=== PATIENT | male | born 2000 | race Caucasian/White ===

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

== ENCOUNTER 2022-02-19 09:36 | Emergency (ER) | payer OTHER ==
[~2022-02-19] VITALS: Ht 182.9 cm; Wt 74.0 kg
[~2022-02-19 09:36] MED LIST changes: +LEVE750T5 PO
[2022-02-19] MEDS ORDERED: DIVA250T67 PO (10:07)
[2022-02-19 11:03] VITALS: BP 129/65
== END 2022-02-19 11:54 | disposition left against medical advice (07) ==
LOC: M ED 09:36 → EDBD 09:36 → M ED 11:54
DX: G40.909 Epilepsy, unspecified, not intractable, without status epilepticus (principal); Z79.899 Other long term (current) drug therapy

== ENCOUNTER 2024-03-18 12:04 | Emergency (ER) | payer OTHER ==
[~2024-03-18] VITALS: Ht 180.3 cm; Wt 76.0 kg
[~2024-03-18 12:04] MED LIST changes: +AMOX875T2 PO; +CVS1CAP2 PO; +DIVA250T67 PO; +DIVA250T7 PO; +DIVA500T9 PO; +DIVA500T94 PO; +PRED10TA2 PO
[2024-03-18 12:20] VITALS: BP 130/78; TEMP 96.3; O2SAT 100
[2024-03-18 13:02] LABS: VALPROIC ACID (DEPAKOTE) 73.4 UG/ML (50.0-100.0)
[2024-03-18 13:03] LABS: BLOOD UREA NITROGEN 11 MG/DL (9-23); CALCIUM LEVEL 9.3 MG/DL (8.5-10.1); CARBON DIOXIDE LEVEL 23 MMOL/L (20-31); CHLORIDE LEVEL 108 MMOL/L (98-107); CREATININE FOR GFR 0.87 MG/DL (0.70-1.30); GLOMERULAR FILTRATION RATE > 60.0 (>60); GLUCOSE, FASTING 80 MG/DL (60-100); POTASSIUM SERUM 4.7 MMOL/L (3.5-5.1); SODIUM LEVEL 139 MMOL/L (136-145)
[2024-03-18] MEDS ORDERED: NS 1,000 ML IV ONE (13:10)
[2024-03-18] MEDS ORDERED: HOME MED LIST COMPLETE! XX SCH (13:30)
[2024-03-18] MEDS ORDERED: ZONI100C67 PO (19:31)
== END 2024-03-18 13:25 | disposition left against medical advice (07) ==
LOC: EDBD 12:04 → M ED 12:04
DX: G40.909 Epilepsy, unspecified, not intractable, without status epilepticus (principal); F19.10 Other psychoactive substance abuse, uncomplicated; Z79.899 Other long term (current) drug therapy; Z53.9 Procedure and treatment not carried out, unspecified reason

== ENCOUNTER 2024-03-18 18:11 | Observation (INO) | payer OTHER ==
[~2024-03-18] VITALS: Ht 180.3 cm; Wt 71.2 kg
[2024-03-18] MEDS ORDERED: HOME MED LIST COMPLETE! XX SCH (18:25)
[2024-03-18] MEDS: LORazepam 2 MG/ML 1ML VIAL IV STA (18:46)
[2024-03-18 18:56] LABS: IONIZED CALCIUM 4.9 MG/DL (4.5-5.3)
[2024-03-18 18:58] LABS: BASO % 0.2 % (0.0-1.0); EOS % 0.1 % (0.0-3.0); HEMATOCRIT 47.6 % (42.0-52.0); HEMOGLOBIN 15.4 g/dl (13.5-17.5); LYMPH # 1.5 10^3/uL (1.5-5.0); LYMPH % 8.2 % (24.0-44.0); MEAN CORPUSCULAR HEMOGLOBIN 28.6 pg (27.0-33.0); MEAN CORPUSCULAR HGB CONC 32.4 g/dl (32.0-36.5); MEAN CORPUSCULAR VOLUME 88.5 fl (80.0-96.0); MONO # 0.9 10^3/uL (0.0-0.8); MONO % 5.1 % (2.0-8.0); NEUTROPHILS # 15.6 10^3/uL (1.5-8.5); NEUTROPHILS % 85.7 % (36.0-66.0); PLATELET COUNT, AUTOMATED 219 10^3/uL (150-450); RED BLOOD COUNT 5.38 10^6/uL (4.30-6.10); WHITE BLOOD COUNT 18.2 10^3/uL (4.0-10.0)
[2024-03-18 19:04] LABS: APPEARANCE, URINE CLEAR (CLEAR); BACTERIA, URINE AUTO NEGATIVE (NEGATIVE); BILIRUBIN, URINE AUTO NEGATIVE (NEGATIVE); BLOOD, URINE BLOOD 1+ (NEGATIVE); COLOR, URINE YELLOW (YELLOW); GLUCOSE, URINE (UA) AUTO NEGATIVE (NEGATIVE); KETONE, URINE AUTO TRACE mg/dL (NEGATIVE); LEUKOCYTE ESTERASE, URINE AUTO NEGATIVE (NEGATIVE); MUCUS, URINE SMALL (NEGATIVE); NITRITE, URINE AUTO NEGATIVE (NEGATIVE); PROTEIN, URINE AUTO 2+ mg/dL (NEGATIVE); RBC, URINE AUTO 2 /HPF (0-3); SPECIFIC GRAVITY URINE AUTO 1.013 (1.002-1.035); SQUAMOUS EPITHELIAL CELL UR AU 0 /HPF (0-6); UROBILINOGEN, URINE AUTO 0.2 mg/dL (0.0-2.0); WBC, URINE AUTO 5 /HPF (0-3)
[2024-03-18 19:20] LABS: AMPHETAMINES LEVEL URINE NEGATIVE (NEGATIVE)
[2024-03-18 19:21] LABS: BARBITURATES URINE NEGATIVE (NEGATIVE); BENZODIAZEPINES URINE NEGATIVE (NEGATIVE); COCAINE METABOLITE URINE NEGATIVE (NEGATIVE); METHADONE URINE NEGATIVE (NEGATIVE); OPIATES URINE NEGATIVE (NEGATIVE); PHENCYCLIDINE URINE NEGATIVE (NEGATIVE)
[2024-03-18 19:28] LABS: CANNABINOIDS URINE POSITIVE (NEGATIVE)
[2024-03-18] MEDS ORDERED: ZONI100C67 PO (19:31)
[2024-03-18 19:34] LABS: ETHYL ALCOHOL (ETHANOL) < 0.003 % (0.000-0.010)
[2024-03-18 19:35] LABS: VALPROIC ACID (DEPAKOTE) 83.8 UG/ML (50.0-100.0)
[2024-03-18 19:36] LABS: ALBUMIN 4.4 G/DL (3.2-5.2); ALKALINE PHOSPHATASE 55 U/L (46-116); ALT/SGPT 21 U/L (7.0-40); AST/SGOT 20 U/L (<34); BILIRUBIN,DIRECT 0.1 MG/DL (<0.4); BILIRUBIN,TOTAL 0.4 MG/DL (0.3-1.2); BLOOD UREA NITROGEN 10 MG/DL (9-23); CALCIUM LEVEL 8.9 MG/DL (8.5-10.1); CARBON DIOXIDE LEVEL 21 MMOL/L (20-31); CHLORIDE LEVEL 107 MMOL/L (98-107); CREATININE FOR GFR 0.77 MG/DL (0.70-1.30); GLOMERULAR FILTRATION RATE > 60.0 (>60); GLUCOSE, FASTING 110 MG/DL (60-100); MAGNESIUM LEVEL 2.2 MG/DL (1.8-2.4); PHOSPHORUS LEVEL 2.6 MG/DL (2.5-4.9); SODIUM LEVEL 138 MMOL/L (136-145); TOTAL PROTEIN 7.6 G/DL (5.7-8.2)
[2024-03-18] MEDS: ZONISAMIDE 100 MG CAP (ZONEGRAN) PO ONE (22:46)
[2024-03-19] MEDS: VALPROATE SOD INJ 1,000 MG in D5W 50 ML IV ONE (01:01)
[2024-03-19] MEDS: NS 1,000 ML IV ONE (01:01)
[2024-03-19 03:30] VITALS: BP 120/78; TEMP 98.4; O2SAT 99
[2024-03-19] MEDS ORDERED: ACETAMINOPHEN TAB 650MG DOSE (2X325MG) PO PRN (04:10)
[2024-03-19] MEDS: ACETAMINOPHEN 500 MG TAB PO PRN (04:56)
[2024-03-19] MEDS ORDERED: ONDANSETRON 4MG ORAL DISINTEGRATING TAB PO PRN (05:20)
[2024-03-19] MEDS ORDERED: DIVALPROEX 500MG *ER* TAB PO SCH (09:00)
[2024-03-19] MEDS ORDERED: ENOXAPARIN 40MG/0.4ML SYRINGE (J1650 PER 10MG) SC SCH (09:00)
[2024-03-19] MEDS ORDERED: ZONISAMIDE 100 MG CAP (ZONEGRAN) PO SCH (21:00)
[2024-03-22] MEDS ORDERED: ZONISAMIDE 100 MG CAP (ZONEGRAN) PO SCH (21:00)
== END 2024-03-19 09:19 | disposition home or self-care (01) ==
LOC: M ED 18:11 → EDBD 18:11 → M ED INP 18:12 → M MSPAV 03-19 03:30
PROVIDERS: ADMIT Family Medicine; ATTEND Internal Medicine Nephrology
DX: G40.901 Epilepsy, unspecified, not intractable, with status epilepticus (principal); Z91.148 Patient's other noncompliance with medication regimen for other reason; G93.41 Metabolic encephalopathy; Z79.899 Other long term (current) drug therapy

== ENCOUNTER 2024-07-30 12:16 | Emergency (ER) | payer OTHER ==
[~2024-07-30] VITALS: Ht 180.3 cm; Wt 74.0 kg
[~2024-07-30 12:16] MED LIST changes: +ZONI100C67 PO
[2024-07-30 12:26] VITALS: TEMP 98.2
[2024-07-30 12:59] LABS: IONIZED CALCIUM 4.7 MG/DL (4.5-5.3)
[2024-07-30 13:07] LABS: BASO % 0.2 % (0.0-1.0); HEMATOCRIT 46.8 % (42.0-52.0); HEMOGLOBIN 15.6 g/dl (13.5-17.5); LYMPH # 1.2 10^3/uL (1.5-5.0); LYMPH % 6.6 % (24.0-44.0); MEAN CORPUSCULAR HEMOGLOBIN 28.7 pg (27.0-33.0); MEAN CORPUSCULAR HGB CONC 33.3 g/dl (32.0-36.5); MONO # 0.7 10^3/uL (0.0-0.8); MONO % 3.7 % (2.0-8.0); NEUTROPHILS # 16.2 10^3/uL (1.5-8.5); NEUTROPHILS % 88.4 % (36.0-66.0); PLATELET COUNT, AUTOMATED 280 10^3/uL (150-450); RED BLOOD COUNT 5.44 10^6/uL (4.30-6.10); WHITE BLOOD COUNT 18.3 10^3/uL (4.0-10.0)
[2024-07-30 13:15] VITALS: BP 123/63
[2024-07-30 13:27] LABS: ETHYL ALCOHOL (ETHANOL) < 0.003 % (0.000-0.010)
[2024-07-30 13:28] LABS: VALPROIC ACID (DEPAKOTE) 13.6 UG/ML (50.0-100.0)
[2024-07-30 13:30] LABS: ALBUMIN 4.3 G/DL (3.2-5.2); ALKALINE PHOSPHATASE 67 U/L (40-129); ALT/SGPT 24 U/L (7.0-40); AST/SGOT 22 U/L (<34); BILIRUBIN,DIRECT 0.1 MG/DL (<0.4); BILIRUBIN,TOTAL 0.4 MG/DL (0.3-1.2); BLOOD UREA NITROGEN 14 MG/DL (9-23); CALCIUM LEVEL 9.8 MG/DL (8.5-10.1); CARBON DIOXIDE LEVEL 20 MMOL/L (20-31); CHLORIDE LEVEL 109 MMOL/L (98-107); CREATININE FOR GFR 0.89 MG/DL (0.70-1.30); GLOMERULAR FILTRATION RATE > 60.0 (>60); GLUCOSE, FASTING 96 MG/DL (60-100); MAGNESIUM LEVEL 2.6 MG/DL (1.8-2.4); PHOSPHORUS LEVEL 1.4 MG/DL (2.5-4.9); POTASSIUM SERUM 3.4 MMOL/L (3.5-5.1); SODIUM LEVEL 140 MMOL/L (136-145); TOTAL PROTEIN 8.1 G/DL (5.7-8.2)
[2024-07-30 13:31] VITALS: O2SAT 76
[2024-07-30 13:37] LABS: AMPHETAMINES LEVEL URINE NEGATIVE (NEGATIVE); BARBITURATES URINE NEGATIVE (NEGATIVE); BENZODIAZEPINES URINE NEGATIVE (NEGATIVE); COCAINE METABOLITE URINE NEGATIVE (NEGATIVE)
[2024-07-30 13:38] LABS: CANNABINOIDS URINE POSITIVE (NEGATIVE); METHADONE URINE NEGATIVE (NEGATIVE); OPIATES URINE NEGATIVE (NEGATIVE); PHENCYCLIDINE URINE NEGATIVE (NEGATIVE)
== END 2024-07-30 13:26 | disposition left against medical advice (07) ==
LOC: M ED 12:16 → EDBD 12:16 → M ED 13:26
DX: G40.909 Epilepsy, unspecified, not intractable, without status epilepticus (principal); Z79.899 Other long term (current) drug therapy; Z53.9 Procedure and treatment not carried out, unspecified reason

== ENCOUNTER 2024-10-04 17:00 | Inpatient (IN) | payer OTHER ==
[~2024-10-04] VITALS: Ht 180.3 cm; Wt 75.0 kg
[2024-10-04 17:47] LABS: HEMATOCRIT 43.4 % (42.0-52.0); HEMOGLOBIN 14.2 g/dl (13.5-17.5); MEAN CORPUSCULAR HEMOGLOBIN 28.2 pg (27.0-33.0); MEAN CORPUSCULAR HGB CONC 32.7 g/dl (32.0-36.5); MEAN CORPUSCULAR VOLUME 86.3 fl (80.0-96.0); PLATELET COUNT, AUTOMATED 253 10^3/uL (150-450); RED BLOOD COUNT 5.03 10^6/uL (4.30-6.10); WHITE BLOOD COUNT 8.5 10^3/uL (4.0-10.0)
[2024-10-04] MEDS: NICOTINE 21MG/24HR 1 EA TRANSDERMAL TD ONE (18:02)
[2024-10-04 18:03] LABS: AMPHETAMINES LEVEL URINE NEGATIVE (NEGATIVE)
[2024-10-04 18:04] LABS: BARBITURATES URINE NEGATIVE (NEGATIVE); BENZODIAZEPINES URINE NEGATIVE (NEGATIVE); COCAINE METABOLITE URINE NEGATIVE (NEGATIVE); METHADONE URINE NEGATIVE (NEGATIVE); OPIATES URINE NEGATIVE (NEGATIVE); PHENCYCLIDINE URINE NEGATIVE (NEGATIVE)
[2024-10-04 18:05] LABS: CANNABINOIDS URINE POSITIVE (NEGATIVE)
[2024-10-04 18:06] LABS: ETHYL ALCOHOL (ETHANOL) < 0.003 % (0.000-0.010); VALPROIC ACID (DEPAKOTE) 31.9 UG/ML (50.0-100.0)
[2024-10-04 18:07] LABS: SALICYLATE LEVEL < 3.0 MG/DL (<30)
[2024-10-04 18:08] LABS: ALBUMIN 4.2 G/DL (3.2-5.2); ALKALINE PHOSPHATASE 53 U/L (40-129); ALT/SGPT 21 U/L (7.0-40); AST/SGOT 31 U/L (<34); BILIRUBIN,DIRECT 0.2 MG/DL (<0.4); BILIRUBIN,TOTAL 0.4 MG/DL (0.3-1.2); BLOOD UREA NITROGEN 10 MG/DL (9-23); CALCIUM LEVEL 9.4 MG/DL (8.5-10.1); CARBON DIOXIDE LEVEL 25 MMOL/L (20-31); CHLORIDE LEVEL 106 MMOL/L (98-107); CREATININE FOR GFR 0.79 MG/DL (0.70-1.30); GLOMERULAR FILTRATION RATE > 60.0 (>60); GLUCOSE, FASTING 107 MG/DL (60-100); POTASSIUM SERUM 3.4 MMOL/L (3.5-5.1); SODIUM LEVEL 143 MMOL/L (136-145); TOTAL PROTEIN 7.5 G/DL (5.7-8.2)
[2024-10-04 18:10] LABS: THYROID STIMULATING HORMONE 2.404 uIU/ML (0.55-4.78)
[2024-10-04] MEDS: POTASSIUM CHLORIDE 10MEQ SR TABLET PO ONE (18:25)
[2024-10-04] MEDS ORDERED: HOME MED LIST COMPLETE! XX SCH (18:45)
[2024-10-04] MEDS ORDERED: MAALOX 30 ML SUSP *UDC PO PRN (20:00)
[2024-10-04] MEDS ORDERED: MOM 30ML SUSPENSION UDC PO PRN (20:00)
[2024-10-04] MEDS ORDERED: ACETAMINOPHEN 325 MG TAB PO PRN (20:00)
[2024-10-04] MEDS ORDERED: IBUPROFEN 400MG TAB PO PRN (20:00)
[2024-10-04] MEDS: DIVALPROEX 250MG *ER* TAB PO SCH (20:43)
[2024-10-04 22:01] VITALS: BP 145/81; TEMP 98.1; O2SAT 99
[2024-10-04] MEDS: OLANZapine 5 MG TAB PO PRN (22:30)
[2024-10-04] MEDS: diphenhydrAMINE 25MG CAP PO PRN (22:30)
[2024-10-04] MEDS: traZODone 50 MG TAB PO PRN (22:30)
[2024-10-05 06:22] VITALS: BP 110/62; TEMP 97.2; O2SAT 100
[2024-10-05] MEDS: NICOTINE 14 MG/24 HR TRANSDERMAL TD SCH (09:38)
[2024-10-05] MEDS: DIVALPROEX 500 MG TAB PO SCH (20:37)
[2024-10-06 06:29] VITALS: BP 105/55; TEMP 97.7; O2SAT 100
== END 2024-10-06 13:39 | disposition home or self-care (01) | DRG 755 ==
LOC: M ED 17:00 → M ED INP 19:56 → M PSY 22:28
PROVIDERS: ADMIT Psychiatry & Neurology Neurology; ATTEND Psychiatry & Neurology Psychiatry
DX: F43.20 Adjustment disorder, unspecified (principal); R45.851 Suicidal ideations; F17.290 Nicotine dependence, other tobacco product, uncomplicated; E87.6 Hypokalemia

== ENCOUNTER 2024-11-22 17:12 | Emergency (ER) | payer MEDICAID, OTHER | END 2024-11-22 17:51 | disposition left against medical advice (07) | LOC: M ED 17:12 → EDBD 17:12 → M ED 17:51 | DX: G40.909 Epilepsy, unspecified, not intractable, without status epilepticus (principal); F32.A Depression, unspecified; F17.210 Nicotine dependence, cigarettes, uncomplicated; F12.10 Cannabis abuse, uncomplicated; Z79.899 Other long term (current) drug therapy; Z53.9 Procedure and treatment not carried out, unspecified reason ==

== ENCOUNTER 2024-11-28 19:30 | Emergency (ER) | payer OTHER ==
[~2024-11-28] VITALS: Ht 180.3 cm; Wt 72.7 kg
[2024-11-28 20:14] LABS: HEMATOCRIT 40.8 % (42.0-52.0); HEMOGLOBIN 13.5 g/dl (13.5-17.5); MEAN CORPUSCULAR HGB CONC 33.1 g/dl (32.0-36.5); MEAN CORPUSCULAR VOLUME 84.6 fl (80.0-96.0); PLATELET COUNT, AUTOMATED 239 10^3/uL (150-450); RED BLOOD COUNT 4.82 10^6/uL (4.30-6.10); WHITE BLOOD COUNT 7.5 10^3/uL (4.0-10.0)
[2024-11-28 20:58] LABS: ETHYL ALCOHOL (ETHANOL) 0.012 % (0.000-0.010); VALPROIC ACID (DEPAKOTE) 21.5 UG/ML (50.0-100.0)
[2024-11-28 21:00] LABS: ALKALINE PHOSPHATASE 57 U/L (40-129); ALT/SGPT 27 U/L (7.0-40); AST/SGOT 23 U/L (<34); BILIRUBIN,DIRECT 0.1 MG/DL (<0.4); BILIRUBIN,TOTAL 0.3 MG/DL (0.3-1.2); BLOOD UREA NITROGEN 7 MG/DL (9-23); CALCIUM LEVEL 9.2 MG/DL (8.5-10.1); CARBON DIOXIDE LEVEL 27 MMOL/L (20-31); CHLORIDE LEVEL 102 MMOL/L (98-107); CREATININE FOR GFR 0.72 MG/DL (0.70-1.30); GLOMERULAR FILTRATION RATE > 60.0 (>60); GLUCOSE, FASTING 104 MG/DL (60-100); POTASSIUM SERUM 3.3 MMOL/L (3.5-5.1); SALICYLATE LEVEL < 3.0 MG/DL (<30); SODIUM LEVEL 143 MMOL/L (136-145); TOTAL PROTEIN 6.9 G/DL (5.7-8.2)
[2024-11-28 21:01] LABS: THYROID STIMULATING HORMONE 0.724 uIU/ML (0.55-4.78)
[2024-11-28 21:06] LABS: AMPHETAMINES LEVEL URINE NEGATIVE (NEGATIVE)
[2024-11-28 21:07] LABS: BARBITURATES URINE NEGATIVE (NEGATIVE); BENZODIAZEPINES URINE NEGATIVE (NEGATIVE); COCAINE METABOLITE URINE NEGATIVE (NEGATIVE); METHADONE URINE NEGATIVE (NEGATIVE); OPIATES URINE NEGATIVE (NEGATIVE); PHENCYCLIDINE URINE NEGATIVE (NEGATIVE)
[2024-11-28 21:08] LABS: CANNABINOIDS URINE POSITIVE (NEGATIVE)
[2024-11-28] MEDS: NICOTINE 21MG/24HR 1 EA TRANSDERMAL TD ONE (21:41)
[2024-11-28] MEDS: DIVALPROEX 500 MG TAB PO SCH (21:41)
[2024-11-28] MEDS ORDERED: DEPA500T2 PO (22:20)
[2024-11-28] MEDS ORDERED: HOME MED LIST COMPLETE! XX SCH (22:20)
[2024-11-29 10:58] VITALS: BP 136/81; TEMP 97.3; O2SAT 99
== END 2024-11-29 11:03 | disposition home or self-care (01) ==
LOC: M ED 19:30
DX: F39 Unspecified mood [affective] disorder (principal); F17.210 Nicotine dependence, cigarettes, uncomplicated; F12.10 Cannabis abuse, uncomplicated